=== PATIENT | female | born 1995 | race Caucasian/White ===

== ENCOUNTER 2020-11-10 20:51 | Emergency (ER) | payer OTHER, SELFPAY ==
[2020-11-10 20:54] VITALS: BP 102/50; PULSE 82; RESP 12; TEMP 36.2; O2SAT 99; BMI 27.8
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
[2020-11-10 21:34] LABS: Absolute Lymphocyte Count 2.86 X10^3/uL (0.83-4.51); Absolute Neutrophil Count 11.8 X10^3/uL (2.0-7.7); Basophil# 0.03 X10^3/uL; Basophil% 0.2 % (0-1); Eosinophil# 0.11 X10^3/uL; Eosinophils% 0.7 % (0-5); Hematocrit 36.8 % (37-47); Hemoglobin 12.3 g/dL (12.0-15.0); Lymphocyte # 2.86 X10^3/ul (0.83-4.51); Lymphocyte % 18.3 % (19-41); Mean Corp Hgb Conc 33.4 g/dL (32-36); Mean Corpuscular Hgb 29.6 pg (27.0-32.0); Mean Corpuscular Volume 88.5 fL (81-99); Mean Platelet Vol. 9.6 fl (6.2-12.0); Monocyte# 0.71 X10^3/uL; Monocyte% 4.5 % (0-10); NRBC Flagged by Analyzer 0 % (0-5); Neutrophil # 11.82 X10^3/uL (2.7-7.7); Neutrophil % 75.5 % (47-70); Platelet Count 256 K/mm3 (150-450); RBC Distribution Width CV 12.9 % (11.6-14.6); RBC Distribution Width SD 41.9 fl (35.1-43.9); Red Blood Count 4.16 M/mm3 (4.2-5.4); White Blood Count 15.7 K/mm3 (4.4-11.0)
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
[2020-11-10 21:50] LABS: AST(SGOT) 52 U/L (15-37); Alanine Aminotransfer ALT/SGPT 43 U/L (13-56); Albumin, Serum 3.8 g/dL (3.2-5.0); Alkaline Phosphatase 46 U/L (45-117); Anion Gap 7 (5-15); BUN 13 mg/dL (7-18); BUN/Creat Ratio 16.1 RATIO (10-20); Bilirubin, Direct 0.08 mg/dL (0.00-0.30); Calcium,Total 8.7 mg/dL (8.5-10.1); Chloride 106 mmol/L (98-107); Creatinine, Serum 0.81 mg/dL (0.55-1.02); EST Glomerular Filtration Rate 93 mL/min (>60); Est Glom Filt Rate - Afr Amer 112 mL/min (>60); Globulin 3.3 g/dL (2.2-4.2); Glucose 145 mg/dL (74-106); International Normalized Ratio 1.1; Potassium 3.2 mmol/L (3.5-5.1); Protein, Total 7.1 g/dL (6.4-8.2); Prothrombin Time (Protime)PT. 13.2 SECONDS (11.7-14.9); Sodium Level 139 mmol/L (136-145)
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
[2020-11-10 22:07] LABS: Internal QC Validated? YES +Cl - CLEAR BKGD; Pregnancy, Serum, hCG Quali. NEGATIVE Negative
[2020-11-10 22:10] LABS: Alcohol, Blood (Medical)-Serum < 3.0 mg/dL
[2020-11-10 22:29] VITALS: BP 110/79; PULSE 81; RESP 17; O2SAT 99
[2020-11-10 23:01] VITALS: BP 97/53; PULSE 72; RESP 14; O2SAT 98
[2020-11-10] MEDS: fentaNYL 100 MCG/2 ML Ampul 50 MCG IV (23:16)
== END 2020-11-10 23:25 | disposition short-term general hospital (02) ==
PROVIDERS: Emergency Provider Student in an Organized Health Care Education/Training Program; PCP Family Medicine
DX: S32.502A Unspecified fracture of left pubis, initial encounter for closed fracture (principal); S32.499A Other specified fracture of unspecified acetabulum, initial encounter for closed fracture; V80.42XA Occupant of animal-drawn vehicle injured in collision with car, pick-up truck, van, heavy transport vehicle or bus, initial encounter
CPT/HCPCS: 70450; 71260; 72040; 72125; 74177; 80048; 80076; 82077; 84703; 85025; 85610; 86850; 86900; 86901; 93005; 96374; 99285; Q9967